=== PATIENT | male | born 1960 | race Caucasian/White ===

== ENCOUNTER 2017-03-27 19:21 | Observation (INO) | payer SELFPAY ==
[2017-03-27 20:23] LABS: % IMMATURE GRANULYOCYTES 0.3 % (0.0-1.1); ABSOLUTE IMMATURE GRANULOCYTES 0.05 10^3/uL (0.00-0.10); ADD DIFF? NO; ADD MORPH? NO; ADD SCAN? NO; ATYPICAL LYMPHOCYTE FLAG 0 (0-99); FRAGMENT RBC FLAG 0 (0-99); HEMATOCRIT 42.7 % (40.0-51.0); HEMOGLOBIN 14.1 g/dL (13.7-17.5); LEFT SHIFT FLG 0 (0-99); LIPEMIA HEMOLYSIS FLAG 80 (0-99); MEAN CELL HEMOGLOBIN 28.8 pg (27.9-34.1); MEAN CELL VOLUME 87.1 fL (81.5-99.8); MEAN PLATELET VOLUME 9.3 fL (8.7-11.7); PLATELET CLUMPS FLAG 10 (0-99); PLATELET COUNT 264 10^3/uL (150-400); RED CELL DISTRIBUTION WIDTH 14.6 % (11.5-15.2)
[2017-03-27] MEDS ORDERED: HYDROmorphONE/DILAUDID 1 MG/ML SYR IVP ONE (20:23)
[2017-03-27] MEDS ORDERED: ONDANSETRON 4 MG/2 ML VIAL IVP ONE (20:23)
[2017-03-27] MEDS ORDERED: NS 1,000 ML IV ONE (20:29)
[2017-03-27 20:33] LABS: ANION GAP 9 mEq/L (8-16); CALCIUM 9.4 mg/dL (8.5-10.4); CARBON DIOXIDE 23 mEq/l (22-31); CHLORIDE 107 mEq/L (97-110); CREATININE 0.9 mg/dL (0.7-1.3); GLOMERULAR FILTRATION RATE > 60; GLUCOSE 138 mg/dL (70-100); POTASSIUM 4.2 mEq/L (3.5-5.2); SODIUM 139 mEq/L (134-144)
[2017-03-27] MEDS ORDERED: ERTAPENEM 1 GM in NS 100 ML IV ONE (20:51)
[2017-03-27] MEDS ORDERED: fentaNYL 100 MCG/2 ML INJ ONE ×2 (21:28→21:47)
[2017-03-27] MEDS ORDERED: PROPOFOL 200 MG/20 ML VIAL ONE ×2 (21:29→21:48)
[2017-03-27] MEDS ORDERED: BUPIVACAINE/EPI 0.5% 30 ML SDV ONE (21:29)
--- NOTE | 2017-03-27 21:36 | GHP ---
[f rep st] HISTORY AND PHYSICAL DATE OF ADMISSION: 03/27/2017 CHIEF COMPLAINT: Perianal pain. HISTORY OF PRESENT ILLNESS: This is an otherwise healthy 56-year-old male, who presents with worsen ing perianal pain. He states that he originally had issues with what appears to be a perirectal abs cess, I and D sometime approximately 25 or 30 years ago. Since that time, he states that he has had continued issues, mainly stating that he does have occasional drainage from that area, for which he self medicates at home with bleach baths and actually a pumice stone to excoriated skin to help pro duce more drainage. At any rate, over the last 24 hours the induration and pain has gotten worse. He also states over the last 3 days that he has had no drainage from that area. He denies having an y fevers. He does endorse subjective chills, and states that he continues to have normal bowel func tion. He does state that his last colonoscopy was somewhat recently and that it was normal. He den ies having any personal history of inflammatory bowel disease or issues with any other anorectal pro blems. His main complaint tonight is pain in the perianal perineal area without radiation, 7/10 in intensity, and he describes it as sharp. PAST MEDICAL HISTORY: None. PAST SURGICAL HISTORY: None. CURRENT MEDICATIONS: [id number] remedies as needed. No prescription medications. ALLERGIES: Grass pollen. REVIEW OF SYSTEMS: A full 10-point review was performed, and unless explicitly stated above is othe rwise negative. SOCIAL HISTORY: Social alcohol. Denies illicit drug use. 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 Denie s any receptive anal intercourse. PHYSICAL EXAM: VITAL SIGNS: Temp 37.7, blood pressure 119/83, heart rate 107, and he is 92% on demian m air. GENERAL: He is alert and oriented, in a mild amount of distress. CV: He has a regular rat e and rhythm, although he is tachycardic. LUNGS: Clear to auscultation bilaterally. ABDOMEN: Sof t, nondistended, nontender. RECTAL: Exam shows a fairly indurated perineal area. I did perform a bedside ultrasound today, which shows a fairly complex fluid collection extending from the anterior rectum toward the perineum with overlying skin erythema and induration without any active drainage. Rectal exam is otherwise normal. Good tone. Normal hemorrhoids. No fissures. No connection to t he rectal area. LABORATORY DATA: Leukocytosis to 14,000 with left shift. Chemistries are unremarkable. IMAGING: Bedside ultrasound performed by me shows a fairly complex fluid collection in the anterior rectal peritoneal area consistent with abscess. ASSESSMENT AND PLAN: A 56-year-old male with a fairly complex loculated perianal perineal abscess. I discussed watchful waiting versus treatment with the patient. I do feel that this would more trey n likely not respond appropriately to the antibiotics given its size. My recommendation was to proc eed to the operating room tonight for an examination under anesthesia with an incision and drainage of that. The patient is amenable to this. I discussed the risks, benefits, and alternatives with h im today. We will plan this evening for IV antibiotics. 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 /[id number]/MODL
[2017-03-27] MEDS ORDERED: DEXAMETHASONE 4 MG/ML VIAL ONE (21:41)
[2017-03-27] MEDS ORDERED: SUCCINYLCHOLINE CHLORIDE*ANESTHESIA ONLY*200 MG/10 ML SYR IVP ONE (21:41)
[2017-03-27] MEDS ORDERED: ONDANSETRON 4 MG/2 ML VIAL ONE (21:41)
[2017-03-27] MEDS ORDERED: ROCURONIUM 50 MG/5 ML VIAL ONE (21:41)
[2017-03-27] MEDS ORDERED: HYDROmorphONE/DILAUDID 1 MG/ML SYR IVP PRN (22:26)
[2017-03-27] MEDS ORDERED: ONDANSETRON 4 MG/2 ML VIAL IVP PRN (22:26)
[2017-03-27] MEDS ORDERED: HYDROCODONE/APAP 5/325 TAB PO PRN (22:26)
[2017-03-27] MEDS ORDERED: D5W 1/2 NS W/ 20 KCl/L 1,000 ML IV SCH (22:30)
--- NOTE | 2017-03-27 22:30 | POSTOPPROG ---
Post Op Note Date of Operation: 03/27/17 Surgeon: Moises Buckley Anesthesiologist: Justin Anesthesia: GET(General Endotracheal) Pre-op Diagnosis: Perianal abscess Post-op Diagnosis: eber-anal, perineal abscess Procedure: EUA, Incision and drainage of abscess Findings: LArge pocket, many septations, lot of purulent material Inf/Abcess present in the surg proc area at time of surgery?: Yes Depth: Superfical (Skin SQ) EBL: Minimal Drains: [place] Specimen(s): Pus sent for culture
--- NOTE | 2017-03-28 01:59 | EDPHY ---
H & P Smoking Status: Never smoked Time Seen by Provider: 03/27/17 19:50 HPI/ROS: CHIEF COMPLAINT: Buttock pain HISTORY OF PRESENT ILLNESS: 56-year-old male presents to the emergency department with swelling and pain to his rectum. The patient states that he has had pain in his rectum for several months to almost 1 year. Patient has been soaking his bottom in bleach. States that it will occasionally drain purulent material. He denies any reported trauma or injury. He noted that the swelling in his rectum has become much worse. Has felt feverish today. He denies abdominal pain. No vomiting or diarrhea. No chest pain or difficulty breathing REVIEW OF SYSTEMS: Constitutional: Subjective fevers Eyes: No double or blurry vision. ENT: No sore throat. Respiratory: No cough, no shortness of breath. Cardiac: No chest pain. Gastrointestinal: No abdominal pain, vomiting or diarrhea. Genitourinary: No dysuria. Musculoskeletal: No neck or back pain. Skin: No rashes. Neurological: No headache. (Sonya Boothe) Past Medical/Surgical History: Nasal surgery x5 (Sonya Boothe M) Social History: Single and lives in [place] (Sonya Boothe M) Physical Exam: General Appearance: Alert, no distress. Temperature 37.7. Eyes: Pupils equal and round. Extraocular motions are all intact. ENT: Mouth: Mucous membranes moist. Respiratory: No wheezing, rhonchi, or rales, lungs are clear to auscultation. Cardiovascular: Regular rate and rhythm. Tachycardic. Gastrointestinal: Abdomen is soft and nontender, no masses, no rebound or guarding, bowel sounds normal. Neurological: Alert and oriented x 3, cranial nerves II through XII grossly intact Skin: Warm and dry, no rashes. Rectal exam: Patient has swelling and redness noted to the perineum between the posterior aspect of the scrotum extending into the rectum. It does not directly extend into the rectum. Very tender to palpate. No purulent drainage. There is some induration noted especially in the left buttock. Musculoskeletal: Nontender to palpate along the cervical, thoracic or lumbar spine. Neck is supple. Extremities: Full range of motion and no peripheral edema. Psychiatric: Patient is oriented X 3, there is no agitation. (Sharifa Boothea M) Constitutional: Initial Vital Signs Temperature (C) 37.7 C 03/27/17 19:22 Heart Rate 107 H 03/27/17 19:22 Respiratory Rate 18 03/27/17 19:22 Blood Pressure 119/83 H 03/27/17 19:22 O2 Sat (%) 92 03/27/17 19:22 O2 Delivery Mode Room Air Allergies/Adverse Reactions: grass pollen Allergy (Verified 03/27/17 19:26) Home Medications: Medication Instructions Recorded NK [No Known Home Meds] 03/27/17 Medical Decision Making ED Course/Re-evaluation: 56-year-old male presents with swelling to the perineum. I was concerned about abscess. I spoke with the on-call surgeon, Dr. Buckley who came to evaluate this patient and took him to the operating room. Laboratory studies reveal CBC of white blood cell count of over 14,000. The surgeon recommended ordering 1 g of Invanz but not infusing this until he is in the operating room. The patient was kept NPO. (Sonya Boothe) Differential Diagnosis: Including but not limited to sepsis, perirectal abscess, necrotizing fasciitis ( Sonya Boothe) Other Provider: The patient was evaluated and managed by the physician event marketing assistant. I have reviewed this chart and I agree with the findings and plan of care as documented , as indicated by my signature. I am the secondary supervising physician. ( Fatimah Womack) - Data Points Laboratory Results: Laboratory Results 03/27/17 20:10 03/27/17 20:10 Medications Given: Discontinued Medications Hydromorphone HCl (Dilaudid) 0.5 mg IVP EDNOW ONE Stop: 03/27/17 20:24 Last Admin: 03/27/17 20:35 Dose: 0.5 mg Sodium Chloride (Ns) 1,000 mls @ 0 mls/hr IV ONCE ONE PRN Reason: Wide Open Stop: 03/27/17 20:30 Last Admin: 03/27/17 20:35 Dose: 1,000 mls Ertapenem 1 gm/ Sodium (Chloride) 100 mls @ 200 mls/hr IV EDNOW ONE PRN Reason: Protocol Stop: 03/27/17 21:20 Last Admin: 03/28/17 00:13 Dose: Not Given Potassium Chloride/Dextrose/Sod Cl (D5w 1/2 Ns / Kcl/L) 1,000 mls @ 100 mls /hr IV CONT TIEN Stop: 09/23/17 22:29 Last Admin: 03/27/17 23:34 Dose: 1,000 mls Ertapenem 1 gm/ Sodium (Chloride) 100 mls @ 200 mls/hr IV DAILY TIEN PRN Reason: Protocol Stop: 04/27/17 08:59 Last Admin: 03/28/17 08:46 Dose: 100 mls Ibuprofen (Motrin) 600 mg PO Q8HRS [facility] Stop: 09/24/17 05:59 Last Admin: 03/28/17 08:57 Dose: Not Given Ondansetron HCl (Zofran) 4 mg IVP EDNOW ONE Stop: 03/27/17 20:24 Last Admin: 03/27/17 20:35 Dose: 4 mg Departure - Departure Disposition: To OP Cath/Surgery Clinical Impression: Abscess perineum Condition: Good
[2017-03-28] MEDS ORDERED: IBUPROFEN 600 MG TAB PO SCH (06:00)
--- NOTE | 2017-03-28 07:42 | GOP ---
[f rep st] OPERATIVE REPORT DATE OF OPERATION: 03/27/2017 SURGEON: Moises Buckley MD DEMONSTRATOR SALES: None. ANESTHESIA: General endotracheal. ANESTHESIOLOGIST: Justin PREOPERATIVE DIAGNOSIS: Perirectal abscess. POSTOPERATIVE DIAGNOSIS: Perianal and perineal abscess. PROCEDURE PERFORMED: Examination under anesthesia with incision and drainage of large loculated peritoneal abscess. FINDINGS: The area of the largest induration was initially incised, foul- smelling purulent fluid was identified. This area was then widened and a piece of skin in an ellipse fashion was taken out. I then made a counter incision inferiorly through which a Corbin drain was threaded. SPECIMENS: Culture of the purulent fluid, a portion of the purulent fluid sent for culture. ESTIMATED BLOOD LOSS: 15 cc. DESCRIPTION OF PROCEDURE: In detail the patient was greeted in the preoperative suite. Once again, risks, benefits, and alternatives were discussed. Consent was signed. He was then brought back to the operative suite , placed on the OR table in supine position. After all anesthesia machines, including SCDs, were on and functioning, [employer] time-out was performed. General endotracheal anesthesia was then induced without incident. After a successful induction, the patient was appropriately placed in low lithotomy position with all pressure points appropriately padded. His perineal area was then prepped and draped in the typical sterile fashion. I commenced the procedure in the anterior portion of the perineum over the area of greatest induration and fluctuance. Upon entering the subcutaneous tissue, I identified a fairly large purulent fluid cavity and a portion of this was sent for culture. I then ellipsed a portion of the skin out of the cavity. There were a lot of septations which were broken with finger dissection. The cavity appeared to probe inferiorly toward the patient's anorectal area. I made a counter incision approximately 2 cm at this site. After this was done, I turned my attention toward the cavity and debrided all of the purulent material. Using multiple Liters of warm normal saline, this was accomplished. I then gently debrided the area using a 15 blade scalpel and a Ray-Renan making sure that all septations were appropriately lysed, after which I obtained hemostasis with a combination of electrocautery and gentle pressure. I then thread 1/4 inch Corbin through both my incision sites and attached it to itself with a silk suture. I infiltrated 0.5% Marcaine into the field to provide a field block. I identified no other areas of purulence. Hemostasis was noted to be good. I then placed sterile 4x4s and ABD over the area. He was then extubated in the operative suite and taken to the PACU in satisfactory condition. DRAINS: Quarter-inch Corbin drain in the area. COUNTS: All counts were reported as correct x2. /[id number]/MODL MTDD
[2017-03-28 08:20] VITALS: BP 119/86; PULSE 70; RESP 18; TEMP 98.4; O2SAT 90
[2017-03-28] MEDS ORDERED: ERTAPENEM 1 GM in NS 100 ML IV SCH (09:00)
== END 2017-03-28 10:24 | disposition home or self-care (01) ==
LOC: F3E 22:59
PROVIDERS: ADMIT Surgery; ATTEND Surgery
PROC: 0H99X0Z Drainage of Perineum Skin with Drainage Device, External Approach (ICD-10-PCS; principal; 2017-03-27 21:30)
DX: L02.215 Cutaneous abscess of perineum (principal); B95.4 Other streptococcus as the cause of diseases classified elsewhere
CPT/HCPCS: 96374; G0378; J0330; J1100; J1170; J1335; J2405; J2704; J3010